=== PATIENT | male | born 1950 | race Caucasian/White ===

== ENCOUNTER → 2016-11-27 | Outpatient (CLI) | payer BC | LOC: HEART 5 15:16 | DX: R06.02 Shortness of breath (principal) | CPT/HCPCS: 94060; 94729 ==

== ENCOUNTER 2021-11-25 13:23 | Observation (INO) | payer MEDICARE, OTHER ==
[~2021-11-25] VITALS: Ht 182.9 cm; Wt 152.7 kg
[2021-11-25 14:17] LABS: HEMOGLOBIN 15.6 gm/dl (14.0-17.5); RED BLOOD COUNT 5.3 M/UL (4.20-5.50); WHITE BLOOD COUNT 13.3 K/UL (4.5-11.0)
[2021-11-25 14:43] LABS: BUN/CREATININE RATIO 19 (0-10)
[2021-11-25] MEDS ORDERED: LISINOPRIL20 MG PO (16:58)
[2021-11-25] MEDS ORDERED: MONTELUKAST SOD10 MG PO (16:58)
[2021-11-25] MEDS ORDERED: PROTONIX40 MG PO (16:59)
[2021-11-25] MEDS ORDERED: CARVEDILOL25 MG PO (16:59)
[2021-11-25] MEDS ORDERED: MELATONIN3 MG PO (17:00)
[2021-11-25] MEDS ORDERED: LEVOTHYROXINE200 MC1 PO (17:00)
[2021-11-25 19:48] LABS: ADENOVIRUS F 40/41 Not Detected (Negative); ASTROVIRUS Not Detected (Negative); CAMPYLOBACTER Not Detected (Negative); CRYPTOSPORIDIUM Not Detected (Negative); E.COLI 0157 Not Detected (Negative); ENTAMOEBA HISTOLYTICA Not Detected (Negative); ENTEROAGGREGATIVE E.COLI (EAEC Not Detected (Negative); ENTEROPATHOGENIC E.COLI (EPEC) Not Detected (Negative); ENTEROTOXIGENIC E.COLI (ETEC) Not Detected (Negative); GIARDIA LAMBLIA Not Detected (Negative); NOROVIRUS GI/GII Not Detected (Negative); PLESIOMONAS SHIGELLOIDES Not Detected (Negative); ROTOVIRUS A Not Detected (Negative); SALMONELLA Not Detected (Negative); SAPOVIRUS Not Detected (Negative); SHIG/ENTEROINVAS.ECOLI (EIEC) Not Detected (Negative); SHIGA-LIK TOX.PRO.E.COLI (STEC Not Detected (Negative); VIBRIO Not Detected (Negative); VIBRIO CHOLERAE Not Detected (Negative); YERSINIA ENTEROCOLITICA Not Detected (Negative)
[2021-11-26 03:25] LABS: HEMOGLOBIN 14.1 gm/dl (14.0-17.5); RED BLOOD COUNT 4.87 M/UL (4.20-5.50)
[2021-11-26 04:10] LABS: BUN/CREATININE RATIO 20 (0-10)
[2021-11-26 09:40] LABS: CLOSTRIDIUM DIFFICILE TOX A/B Not Detected (Negative)
[2021-11-26] MEDS ORDERED: FLAGYL 250 MG250 MG PO (13:20)
[2021-11-26] MEDS ORDERED: LEVOFLOXACIN500 MG PO (13:20)
== END 2021-11-26 15:15 | disposition home or self-care (01) ==
LOC: ER1 13:23 → CDU 16:31 → M/S 16:31
PROVIDERS: ADMIT Internal Medicine
DX: K52.9 Noninfective gastroenteritis and colitis, unspecified (principal); C18.9 Malignant neoplasm of colon, unspecified; C21.0 Malignant neoplasm of anus, unspecified; I10 Essential (primary) hypertension; E03.9 Hypothyroidism, unspecified; R60.0 Localized edema; D72.829 Elevated white blood cell count, unspecified; R73.9 Hyperglycemia, unspecified; R31.9 Hematuria, unspecified; K21.9 Gastro-esophageal reflux disease without esophagitis; Z93.3 Colostomy status; Z87.19 Personal history of other diseases of the digestive system; Z88.0 Allergy status to penicillin; Z20.822 Contact with and (suspected) exposure to COVID-19
CPT/HCPCS: 80053; 81001; 83036; 83690; 83735; 84439; 84443; 85025; 85027; 87040; 87507; 93005; 93970; 96372; 96374; 96375; 96376; 99285; C9113; G0378; J1170; J1650; J1956; J2270; J2405; J7030; Q9967; U0002